=== PATIENT | male | born 1970 | race Caucasian/White ===

== ENCOUNTER 2022-01-11 15:14 | Emergency (ER) | payer SELFPAY ==
--- OUTSIDE RECORDS SUMMARY | 2022-01-11 15:16 | XMS REPORT | Continuity of Care Document ---
:1970 Author Organization [facility] t Address [address] [place] [address] Care Team Providers Name Role Phone Matthews Primary Care Physician Cheyenne Gunderson Attending Clinician Cheyenne TIAN Attending Clinician Unavailable Problems Condition Condition Condition Status Onset Resolution Last Treating Co mments Source Name Details Category Date Date Treatment Clinician Date No known No known Disease Unive rs active active ity of problems problems [facility] Allergies, Adverse Reactions, Alerts Allergy Allergy Status Severity Reaction(s) Onset Inactive Treating Comm ents Source Name Type Date Date Clinician NO KNOWN Drug Active Univers ALLERGIE Class ity of [facility] Social History Social Habit Start Date Stop Date Quantity Comments Source Exposure to Yes [facility] SARS-CoV-2 (event) Medica l Branch Sex Assigned At [birth year] [facility] 00:00:00 00:00:00 [facility] Smoking Status Start Date Stop Date Source Unknown if ever smoked [facility] Medications Ordered Filled Start Stop Current Ordering Indication Dosage Frequency Signature Comments Components Source Medication Medication Date Date Medication? Clinician (SIG) Name Name lidocaine 2020- No 5mL 5 mL, Univer s 1% 06-08 Infiltrati ity of (XYLOCAINE) 18:30: 17:46 on, ONCE, [place] 10 mg/mL (1 00 :00 1 dose, On Me dical %) Mon Branch injection 5 06/08/21 at mL 1330, BEAU bupivacaine 2020- No 5mL 5 mL, Univ ers (preserv 9-20 09-20 Infiltrati ity of free) 18:30: 17:46 on, ONCE, [place] (SENSORCAIN 00 :00 1 dose, On Me dical E MPF) 0.25 Mon Branch % (2.5 06/08/21 at mg/mL) 1330, BEAU injection 5 mL HYDROcodone 2020- No 1{tbl} 1 tablet, Univers -acetaminop 06-08 Oral, ONCE i ty of hen (NORCO) 18:15: 17:46 NOW, 1 Jovany as 10-325 mg 00 :00 dose, On Medica l tablet 1 Mon Branch tablet 06/08/21 at 1315, Routine ibuprofen Yes [id number] 600mg Take 1 Univers 600 mg 06-08 [id number] tablet by ity of tablet 00:00: mouth [place] 00 every 6 Medical (six) Branch hours as needed for Pain (scale 4-6). cephALEXin 2020- No [id number] 500mg Take 1 Univers 500 mg 06-08 [id number] capsule by ity of capsule 00:00: 04:59 mouth 4 [place] 00 :00 (four) Medical times Branch daily for 5 days. Immunizations Ordered Filled Immunization Date Status Comments [facility] e Immunization Name Name Td 2021-06-08 Completed [facility] 00:00:00 [facility] Vital Signs Vital Name Observation Time Observation Value Comments Source Systolic blood 2021-06-08 19:12:00 130 [facility]Hg[facility] Diastolic blood 2021-06-08 19:12:00 97 mm[facility]Hg[facility] 2021-06-08 19:00:00 54 /min [facility] Body temperature 2021-06-08 19:00:00 36.67 Mar[facility] Respiratory rate 2021-06-08 19:00:00 17 /min [facility] Oxygen saturation in 2021-06-08 19:00:00 96 /min [facility] Arterial blood by [facility] Pulse oximetry Branch Body height 2021-06-08 17:14:00 180.3 cm [facility] Body weight 2021-06-08 17:14:00 70.308 kg [facility] BMI 2021-06-08 17:14:00 21.62 kg/m2 [facility] Procedures Procedure Date / Time Performed Performing Clinician Sourc e XR HAND 3+ VW RIGHT 2021-06-08 17:58:38 Belle Tian [facility] Encounters Start End Encounter Admission Attending Care Care Encounter Source Date/Time Date/Time Type Type Clinicians Facility Department ID 2021-06-08 2021-06-08 Emergency [facility] [id number] Univers 12:26:00 14:23:00 Belle Escobedo [id number] i [facility] [id number] [facility] [id number] [facility] 084 Branch 2021-06-08 2021-06-08 Emergency [facility] ERT [id number] Univers 12:26:00 12:26:00 BELLE hernandez [facility] Results This patient has no known results.
[2022-01-11] MEDS ORDERED: LIDOCAINE 2% MPF 5 ML VIAL ONE (15:49)
--- NOTE | 2022-01-11 16:09 | ER ---
Nurse's Notes [facility] Name: Jesús Flores Jr Age: 51 yrs Sex: Male : 1970 Arrival Date: 01/11/2022 Time: 15:14 Bed 11 Private MD: Diagnosis: Arm Laceration Right/Open wound forearm Presentation: 01/11 15:25 Chief complaint: Patient states: "my brother dropped the metal drip edge from the roof aa5 and it cut my arm". pt c/o laceration to right arm. Coronavirus screen: At this time, the client does not indicate any symptoms associated with coronavirus-19. Ebola Screen: No symptoms or risks identified at this time. Complicating Factors: There are no complicating factors for this patient. Initial Sepsis Screen: Does the patient meet any 2 criteria? Yes Does the patient have a suspected source of infection? No. Patient's initial sepsis screen is negative. Risk Assessment: Do you want to hurt yourself or someone else? Patient reports no desire to harm self or others. Onset of symptoms was December 2021. 15:25 Method Of Arrival: Ambulatory aa5 15:25 Acuity: LILY 4 aa5 Historical: - Allergies: 15:24 No Known Allergies; aa5 - PMHx: 15:24 None; aa5 - PSHx: 15:24 Vasectomy; aa5 - Immunization history:: Last tetanus immunization: < 5 years ago. - Social history:: Smoking status: Patient reports the use of cigarette tobacco products. Screenin:49 Abuse screen: Denies threats or abuse. Denies injuries from another. Nutritional jl7 screening: No deficits noted. Tuberculosis screening: No symptoms or risk factors identified. Fall Risk None identified. Assessment: 15:49 General: Appears in no apparent distress. uncomfortable, Behavior is calm, cooperative, jl7 appropriate for age. Pain: Complains of pain in right arm. Neuro: Level of Consciousness is awake, alert, obeys commands, Oriented to person, place, time, situation. Cardiovascular: Patient's skin is warm and dry. Respiratory: Airway is patent Respiratory effort is even, unlabored, Respiratory pattern is regular, symmetrical. Derm: Skin is pink, warm \\T\\ dry. Musculoskeletal: Range of motion: intact in all extremities. Injury Description: Laceration sustained to dorsal aspect of right forearm is 2.6 to 7.5 cm long, was sustained 30-60 minutes ago. is bleeding a small amount. 16:22 Reassessment: Patient appears in no apparent distress at this time. Patient and/or iw family updated on plan of care and expected duration. Pain level reassessed. Patient is alert, oriented x 3, equal unlabored respirations, skin warm/dry/pink. Vital Signs: 15:25 BP 131 / 96; Pulse 87; Resp 18 S; Temp 98.2(TE); Pulse Ox 97% on R/A; Weight 70.31 kg aa5 (R); Height 5 ft. 11 in. (180.34 cm) (R); 16:23 BP 123 / 93; iw 15:25 Body Mass Index 21.62 (70.31 kg, 180.34 cm) aa5 ED Course: 15:14 Patient arrived in ED. as 15:15 Christopher Cole PA is PHCP. jr8 15:15 Jeremy Jones MD is Attending Physician. jr8 15:24 Arm band placed on. aa5 15:26 Triage completed. aa5 15:41 Adrienne Coleman RN is Primary Nurse. jl7 15:49 Patient has correct armband on for positive identification. jl7 15:49 Assist provider with laceration repair on right arm that was between 2.6 to 7.5 cm jl7 using sutures. Set up tray. Performed by Christopher KEEN Dressed with 4X4s, Neosporin, Patient tolerated well. 16:23 Patient did not have IV access during this emergency room visit. iw Administered Medications: 15:49 Drug: Lidocaine (1 %) 1 application {Note: administered by LEONILA White.} Volume: 20 ml; jl7 Route: Infiltration; Outcome: 16:08 Discharge ordered by . jr8 16:23 Discharged to home ambulatory. iw 16:23 Condition: good 16:23 Discharge instructions given to patient, Instructed on discharge instructions, follow up and referral plans. medication usage, Demonstrated understanding of instructions, follow-up care, medications, Prescriptions given X 1. 16:23 Patient left the ED. iw Signatures: Lizbet Mar Irene, RN RN Minoo Ramires RN RN aa5 Christopher Cole PA PA jrAdrienne Light RN RN jl7 Corrections: (The following items were deleted from the chart) 15:25 15:24 PSHx: None; aa5 aa5 16:13 15:25 Acuity: LILY 3 aa5 aa5
--- NOTE | 2022-01-11 16:09 | EDPHYS ---
Physician Documentation [facility] Name: Jesús Flores Jr Age: 51 yrs Sex: Male : 1970 Arrival Date: 01/11/2022 Time: 15:14 Bed 11 Private MD: ED Physician Jeremy Jones HPI: 01/11 16:46 This 51 yrs old Male presents to ER via Ambulatory with complaints of Laceration To Arm.jr8 16:46 The patient has a laceration related to: working, from a sharp metal object, occurred jr8 outdoors. The laceration(s) is(are) located on the palmar aspect of right forearm. Onset: The symptoms/episode began/occurred acutely, today. Associated signs and symptoms: The patient has no apparent associated signs or symptoms. The patient has not experienced similar symptoms in the past. The patient has not recently seen a physician. Patient stated that piece of metal sheeting came down and struck his right arm causing "v" shaped laceration. Denies any other trauma . Historical: - Allergies: 15:24 No Known Allergies; aa5 - PMHx: 15:24 None; aa5 - PSHx: 15:24 Vasectomy; aa5 - Immunization history:: Last tetanus immunization: < 5 years ago. - Social history:: Smoking status: Patient reports the use of cigarette tobacco products. ROS: 16:46 Eyes: Negative for injury, pain, redness, and discharge, ENT: Negative for injury, jr8 pain, and discharge, Neck: Negative for injury, pain, and swelling, Cardiovascular: Negative for chest pain, palpitations, and edema, Respiratory: Negative for shortness of breath, cough, wheezing, and pleuritic chest pain, Abdomen/GI: Negative for abdominal pain, nausea, vomiting, diarrhea, and constipation, Back: Negative for injury and pain, MS/Extremity: Negative for injury and deformity, Neuro: Negative for headache, weakness, numbness, tingling, and seizure. 16:46 Skin: Positive for laceration(s). Exam: 16:46 Constitutional: This is a well developed, well nourished patient who is awake, alert, jr8 and in no acute distress. Cardiovascular: Regular rate and rhythm with a normal S1 and S2. No gallops, murmurs, or rubs. Normal PMI, no JVD. No pulse deficits. Respiratory: Lungs have equal breath sounds bilaterally, clear to auscultation and percussion. No rales, rhonchi or wheezes noted. No increased work of breathing, no retractions or nasal flaring. MS/ Extremity: Pulses equal, no cyanosis. Neurovascular intact. Full, normal range of motion. Neuro: Awake and alert, GCS 15, oriented to person, place, time, and situation. Motor strength 5/5 in all extremities. Sensory grossly intact. 16:46 Skin: injury, laceration(s), the wound is approximately 6 cm(s), with a depth of .3 cm(s), of the palmar aspect of right forearm, that can be described as foreign body containing, irregular, with mild bleeding. Vital Signs: 15:25 BP 131 / 96; Pulse 87; Resp 18 S; Temp 98.2(TE); Pulse Ox 97% on R/A; Weight 70.31 kg aa5 (R); Height 5 ft. 11 in. (180.34 cm) (R); 16:23 BP 123 / 93; iw 15:25 Body Mass Index 21.62 (70.31 kg, 180.34 cm) aa5 Laceration: 16:06 Wound Repair of 6cm ( 2.4in ) subcutaneous laceration to palmar aspect of right jr8 forearm. Irregularly shaped.. Skin/tissue flap noted.. Minimal contamination.. Minimal bleeding noted.. Distal neuro/vascular/tendon intact. Anesthesia: Local anesthetic administered with 8 mls of 1% lidocaine. Wound prep: Extensive cleansing with hibiclenz, Wound irrigation with saline, Particulate matter removal of dirt, Wound margin revised minimally, Wound explored extensively. Skin closed with 9 4-0 Prolene using interrupted sutures and sterile technique. Dressed with 4x4's, pressure dressing. Patient tolerated well. MDM: 15:44 Patient medically screened. 8 16:06 Data reviewed: vital signs, nurses notes, and as a result, I will discharge patient. jr8 Data interpreted: Pulse oximetry: on room air is 97 %. Interpretation: normal. Counseling: I had a detailed discussion with the patient and/or guardian regarding: the historical points, exam findings, and any diagnostic results supporting the discharge/admit diagnosis, the need for outpatient follow up, a family practitioner, to return to the emergency department if symptoms worsen or persist or if there are any questions or concerns that arise at home. 01/11 15:49 Order name: Dressing - Wound; Complete Time: 15:49 jl7 01/11 15:49 Order name: Gloves, Sterile; Complete Time: 15:49 jl7 01/11 15:49 Order name: Prolene, Sutures; Complete Time: 15:49 jl7 01/11 15:49 Order name: Setup Suture Tray; Complete Time: 15:49 jl7 Administered Medications: 15:49 Drug: Lidocaine (1 %) 1 application {Note: administered by PA. Christopher} Volume: 20 ml; jl7 Route: Infiltration; Disposition: 18:24 Co-signature as Attending Physician, Jeremy Jones MD. rn Disposition Summary: 01/11/22 16:08 Discharge Ordered Location: Home jr8 Problem: new jr8 Symptoms: have improved jr8 Condition: Stable jr8 Diagnosis - Arm Laceration Right/Open wound forearm jr8 Followup: jr8 - With: Private Physician - When: 7 - 10 days - Reason: Wound Recheck, Recheck today's complaints, Continuance of care, Staple/Suture removal, Re-evaluation by your physician Discharge Instructions: - Discharge Summary Sheet jr8 - Laceration Care, Adult jr8 Forms: - Medication Reconciliation Form jr8 - Thank You Letter jr8 - Antibiotic Education jr8 - Prescription Opioid Use jr8 Prescriptions: - Cephalexin 500 mg Oral Capsule - take 1 capsule by ORAL route every 8 hours for 5 days; 15 capsule; Refills: 0, jr8 Product Selection Permitted Signatures: Jeremy Jones MD MD rn Calderon, Audri RN RN aa5 Christopher Cole PA PA jr8 Adrienne Coleman RN RN jl7 Corrections: (The following items were deleted from the chart) 15:24 PSHx: None; anitha welsh
[2022-01-11 19:09] VITALS: TEMP 98.2; O2SAT 97
[2022-01-11 19:10] VITALS: BP 123/93
== END 2022-01-11 16:23 | disposition home or self-care (01) ==
LOC: ER 15:14
PROC: 0JQG0ZZ Repair Right Lower Arm Subcutaneous Tissue and Fascia, Open Approach (ICD-10-PCS; principal; 2022-01-11)
DX: S51.811A Laceration without foreign body of right forearm, initial encounter (principal); W26.8XXA Contact with other sharp object(s), not elsewhere classified, initial encounter; Y93.89 Activity, other specified; Y92.9 Unspecified place or not applicable
CPT/HCPCS: 99283